=== PATIENT | female | born 1960 ===

== ENCOUNTER 2018-05-08 06:05 | Day surgery (SDC) | payer OTHER ==
[~2018-05-08 06:05] MED LIST: ANAPROX275 MG PO; COZAAR50 MG PO; LEVOTHYROXINE SO1 GM PO; LOVAZA1 GM PO; METFORMIN HCL500 MG PO
[2018-05-08] MEDS ORDERED: PERCOCET 5-3251 EACH PO (09:27)
== END 2018-05-08 10:48 | disposition home or self-care (01) ==
LOC: CIR.AMB 06:05
DX: N83.291 Other ovarian cyst, right side (principal)